=== PATIENT | female | born 1980 | race American Indian/Alaskan Native ===

== ENCOUNTER 2021-06-17 04:46 | Emergency (ER) | payer OTHER ==
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
[2021-06-17 06:44] VITALS: BP 132/74
== END 2021-06-17 07:48 ==
LOC: ED 04:46
DX: S80.02XA Contusion of left knee, initial encounter (principal); S20.219A Contusion of unspecified front wall of thorax, initial encounter; Z02.89 Encounter for other administrative examinations; V89.2XXA Person injured in unspecified motor-vehicle accident, traffic, initial encounter; Y93.89 Activity, other specified; Y92.89 Other specified places as the place of occurrence of the external cause; F10.20 Alcohol dependence, uncomplicated; Y99.8 Other external cause status
CPT/HCPCS: 71046; 99283